=== PATIENT | female | born 1995 ===

== ENCOUNTER 2016-09-06 17:41 | Emergency (ER) | payer SELFPAY ==
--- NOTE | 2016-09-06 18:11 | RAD ---
LEFT TIBIA AND FIBULA TWO VIEWS: 09/06/16 HISTORY: Trauma to the tib/fib region. There are no signs of fracture or dislocation. IMPRESSION: Negative left tib/fib. POS: [facility]
[2016-09-06] MEDS ORDERED: HYDROcodone/Acetaminophen 5/325 mg Tablet ONE (18:16)
--- NOTE | 2016-09-06 18:36 | ERRECORD ---
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 HISTORIAN: History provided by patient. MECHANISM OF INJURY: Known mechanism. TIME COURSE: Sudden onset of symptoms. EXACERBATED BY: Patient's condition exacerbated by movement. RELIEVED BY: Patient's condition relieved by nothing. ROS (18:05 [facility]) CONSTITUTIONAL: Negative constitutional review of systems. EYES: Negative eye review of systems. ENT: Negative ears, nose, throat review of systems. CARDIOVASCULAR: Negative cardiovascular review of systems. RESPIRATORY: Negative respiratory review of systems. GI: Negative gastrointestinal review of systems. GENITOURINARY FEMALE: Negative genitourinary review of systems. MUSCULOSKELETAL: Negative musculoskeletal review of systems, pain in front of left leg under knee. SKIN: Negative skin review of systems. NEUROLOGIC: Negative neurologic review of systems. ENDOCRINE: Negative endocrine review of systems. NOTES: All systems reviewed, negative except as described above. KNOWN ALLERGIES No recorded allergies CURRENT MEDICATIONS No recorded medications VITAL SIGNS VITAL SIGNS: BP: 136/94, Pulse: 96, Resp: 20, Temp: 98.1 (Oral), O2 sat: 92 on Room Air, Time: 09/06/2016 17:47. (17:47 IHAC) Pulse: 88, Resp: 20, O2 sat: 94 on Room Air, Time: 09/06/2016 18:39. (18:39 IHAC) PHYSICAL EXAM (18:05 SHAN) CONSTITUTIONAL: Patient afebrile, Pulse normal, Blood pressure normal, Respiratory rate normal, Patient appears non toxic, Patient appears pain free, Patient alert and oriented to person, place and time. HEAD: Head exam included findings of head atraumatic, normocephalic. EYES: Eye exam normal, Eye exam included findings of eyelids normal to inspection, Pupils equally round and reactive to light, Extraocular muscles intact. ENT: ENT exam normal, Pharynx exam normal, Uvula exam normal, Tonsil exam normal. &a-1R&a+25V*p+0X*o1813P*c202B*c15G*c2P*p-0X&a-25V&a+1R Name: Sanna Meraz : 1995 F21 MedRec: [id number] AcctNum: [id number] Prepared: SunSep 06, 2016 18:45 by Interface Page 1 of 3 pMD [facility] EMERGENCY RECORD NECK: Neck exam normal, Neck exam included findings of normal range of motion, Trachea midline. RESPIRATORY CHEST: Respiratory and chest exam normal, Chest exam included findings of chest movement symmetrical, Chest expansion equal, Percussion normal. CARDIOVASCULAR: Cardiovascular assessment normal, Cardiovascular exam included findings of heart rate regular rate and rhythm, Heart sounds normal. ABDOMEN FEMALE: Abdominal exam normal, Abdominal exam included findings of abdomen nontender, Bowel sounds normal. BACK: Back exam normal. UPPER EXTREMITY: Upper extremity exam normal, Upper extremity exam included findings of inspection normal, Range of motion normal. LOWER EXTREMITY: Walked in; left pretibial area and upper 1/2 of left lower leg bruised and with mild abraisions. NEURO: Neuro exam normal. SKIN: Skin exam normal. PSYCHIATRIC: Psychiatric exam normal, Psychiatric exam included findings of patient oriented to person place and time, Normal affect, Judgment normal, Insight normal. MEDICATION ADMINISTRATION SUMMARY Drug Name: *[place], Dose Ordered: 1 tab(s), Route: Oral, Status: Given, Time: 18:16 09/06/2016, *Additional information available in notes, Detailed record available in Medication Service section. DOCTOR NOTES (18:16 SHAN) TEXT: Negative x-rays, discussed treatment and usual course and things to watch for. DATA REVIEWED: Xray data reviewed. PROBLEM LIST No recorded problems DIAGNOSIS (18:17 SHAN) FINAL: PRIMARY: left leg contusion. PRESCRIPTION (18:18 SHAN) Ultram: TABLET : 50 mg : ORAL : Quantity: 1 Unit: tab(s) Route: ORAL Schedule: every 4 hours prn Dispense: 25 Unit: tab(s) May substitute. Refills: No Refills . NOTES: No Refills. DISPOSITION PATIENT: Disposition Type: Discharge, Disposition: *Discharge Home. (18:17 SHAN) Patient left the department. (18:40 JPAR) Healy: &a-1R&a+25V*p+0X*r9554B*c202B*c15G*c2P*p-0X&a-25V&a+1R Name: Sanna Meraz : 1995 F21 MedRec: [id number] AcctNum: [id number] Prepared: SunSep 06, 2016 18:45 by Interface Page 2 of 3 pMD [facility] EMERGENCY RECORD CECILLE=DREW Alvarenga, April MARTÍNEZ=DREW Haley, Valentino GOLDEN=MD Ricardo, Dennis &a-1R&a+25V*p+0X*n3827D*c202B*c15G*c2P*p-0X&a-25V&a+1R Name: Sanna Meraz : 1995 F21 MedRec: [id number] AcctNum: [id number] Prepared: SunSep 06, 2016 18:45 by Interface Page 3 of 3 pMD MTDD
--- NOTE | 2016-09-06 18:40 | PICIS ---
[facility] EMERGENCY RECORD TRIAGE (17:49 IHAC) PATIENT: NAME: Sanna Meraz, AGE: 21, GENDER: female, : Sun1995, TIME OF GREET: SunSep 06, 2016 17:41, PREFERRED LANGUAGE: Maori, ETHNICITY: or , ECODE BILLING MAP: [facility], Zip Code: [address], KG WEIGHT: [phone], PHONE: , , , PERSON ID: [id number]. (17:49 IHAC) COMPLAINT: LEFT KNEE INJURY. (17:49 IHAC) ADMISSION: URGENCY: 4 Non Urgent, ADMISSION SOURCE: Home, TRANSPORT: CAR, BED: ER -05. (17:49 IHAC) ASSESSMENT: Assessment: PAIN TO LEFT KNEE, Symptoms began 1.5 hours ago. (17:52 IHAC) PAIN: Patient complains of pain described as, aching, on a scale 0-10 patient rates pain as 7. (17:52 IHAC) IMMUNIZATIONS: Flu vaccine not up to date. (17:52 IHAC) SIRS SCORING: Heart Rate 55-109 (0), Temp range 96.8-101.1 (0). (17:52 IHAC) LMP: Last menstrual period: 08/30/16. (17:52 IHAC) PROVIDERS: TRIAGE NURSE: Ernst Menjivar RN. (17:49 IHAC) VITAL SIGNS: BP 136/94, Pulse 96, Resp 20, Temp 98.1, (Oral), O2 Sat 92, on Room Air, Time 09/06/2016 17:47. (17:47 IHAC) KNOWN ALLERGIES No recorded allergies CURRENT MEDICATIONS No recorded medications VITAL SIGNS VITAL SIGNS: BP: 136/94, Pulse: 96, Resp: 20, Temp: 98.1 (Oral), O2 sat: 92 on Room Air, Time: 09/06/2016 17:47. (17:47 IHAC) Pulse: 88, Resp: 20, O2 sat: 94 on Room Air, Time: 09/06/2016 18:39. (18:39 IHAC) NURSING ASSESSMENT: EXTREMITY LOWER (17:56 IHAC) CONSTITUTIONAL: Complex assessment performed, Patient arrives ambulatory, Gait steady, History obtained from patient, Patient appears comfortable, Patient cooperative, Patient alert, Oriented to person, place and time, Skin warm, Skin dry, Skin normal in color, Mucous membranes pink, Mucous membranes moist, Patient is well-groomed. PAIN: aching pain, to the left knee, constant, on a scale 0-10 patient rates pain as 7, Pain exacerbated by, position change, Nothing has been tried to alleviate the pain. LEFT LOWER EXTREMITY: Left lower extremity assessment findings include capillary refill less than 2 seconds, Skin color normal, Skin temperature warm, Distal sensation intact, Muscle tone normal, no edema present, posterior tibia pulse is +4, dorsalis pedis pulse is &a-1R&a+25V*p+0X*p6694E*c202B*c15G*c2P*p-0X&a-25V&a+1R Name: Sanna Meraz : 1995 F21 MedRec: [id number] AcctNum: [id number] Prepared: SunSep 06, 2016 18:52 by Interface Page 1 of 4 pMD [facility] EMERGENCY RECORD +4. SAFETY: Side rails up, Cart/Stretcher in lowest position, Family at bedside, Call light within reach, Hospital ID band on. NURSING PROCEDURE: NURSE NOTES (18:02 [facility]) NURSES NOTES: Notes: PT. REPORTS HURTING HER KNEE AT WORK WHILE MOVING PALLETES . SHE WAS STADING ON TOP AND CO-WORKER REMOVED THE WON CAUSING HER TO FALL ON HER KNEE. ORDER DETAILS Order Name: XR Tib Fib Lt Leg 2 View, Status: Active, Time: 17:51 09/06/2016, User: CHICO, - Ordered for: MD Silva Stanley, - Entered by: MD Silva Stanley - SunSep 06, 2016 17:51, - Quantity: 1. MEDICATION ADMINISTRATION SUMMARY Drug Name: *[place], Dose Ordered: 1 tab(s), Route: Oral, Status: Given, Time: 18:16 09/06/2016, *Additional information available in notes, Detailed record available in Medication Service section. MEDICATION SERVICE (18:16 CHICO) [place]: Order: [place] (hydrocodone bitartrate/acetaminophen) - Dose: 1 tab(s) : Oral Schedule: Now Notes: one 5/325 [place] po now Ordered by: Dennis Silva MD Entered by: Dennis Silva MD SunSep 06, 2016 18:08 , Acknowledged by: Ernst Menjivar RN SunSep 06, 2016 18:15 Documented as given by: Ernst Menjivar RN SunSep 06, 2016 18:16 Patient, Medication, Dose, Route and Time verified prior to administration. Amount given: 5/325MG, Amount wasted: 0, Site: Medication administered P.O., Patient appears Awake and alert- acceptable, Correct patient, time, route, dose and medication confirmed prior to administration, Patient advised of actions and side-effects prior to administration, Allergies confirmed and medications reviewed prior to administration, Administered by ERNST MENJIVAR RN, Patient in position of comfort, Side rails up, Cart in lowest position, Family at bedside. 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 HISTORIAN: History provided by patient. MECHANISM OF INJURY: Known mechanism. TIME COURSE: Sudden &a-1R&a+25V*p+0X*o6601J*c202B*c15G*c2P*p-0X&a-25V&a+1R Name: Sanna Meraz : 1995 F21 MedRec: [id number] AcctNum: [id number] Prepared: SunSep 06, 2016 18:52 by Interface Page 2 of 4 pMD [facility] EMERGENCY RECORD onset of symptoms. EXACERBATED BY: Patient's condition exacerbated by movement. RELIEVED BY: Patient's condition relieved by nothing. ROS (18:05 SHAN) CONSTITUTIONAL: Negative constitutional review of systems. EYES: Negative eye review of systems. ENT: Negative ears, nose, throat review of systems. CARDIOVASCULAR: Negative cardiovascular review of systems. RESPIRATORY: Negative respiratory review of systems. GI: Negative gastrointestinal review of systems. GENITOURINARY FEMALE: Negative genitourinary review of systems. MUSCULOSKELETAL: Negative musculoskeletal review of systems, pain in front of left leg under knee. SKIN: Negative skin review of systems. NEUROLOGIC: Negative neurologic review of systems. ENDOCRINE: Negative endocrine review of systems. NOTES: All systems reviewed, negative except as described above. PHYSICAL EXAM (18:05 SHAN) CONSTITUTIONAL: Patient afebrile, Pulse normal, Blood pressure normal, Respiratory rate normal, Patient appears non toxic, Patient appears pain free, Patient alert and oriented to person, place and time. HEAD: Head exam included findings of head atraumatic, normocephalic. EYES: Eye exam normal, Eye exam included findings of eyelids normal to inspection, Pupils equally round and reactive to light, Extraocular muscles intact. ENT: ENT exam normal, Pharynx exam normal, Uvula exam normal, Tonsil exam normal. NECK: Neck exam normal, Neck exam included findings of normal range of motion, Trachea midline. RESPIRATORY CHEST: Respiratory and chest exam normal, Chest exam included findings of chest movement symmetrical, Chest expansion equal, Percussion normal. CARDIOVASCULAR: Cardiovascular assessment normal, Cardiovascular exam included findings of heart rate regular rate and rhythm, Heart sounds normal. ABDOMEN FEMALE: Abdominal exam normal, Abdominal exam included findings of abdomen nontender, Bowel sounds normal. BACK: Back exam normal. UPPER EXTREMITY: Upper extremity exam normal, Upper extremity exam included findings of inspection normal, Range of motion normal. LOWER EXTREMITY: Walked in; left pretibial area and upper 1/2 of left lower leg bruised and with mild abraisions. NEURO: Neuro exam normal. SKIN: Skin exam normal. PSYCHIATRIC: Psychiatric exam normal, Psychiatric exam included findings of patient oriented to person place and time, Normal affect, &a-1R&a+25V*p+0X*r4851I*c202B*c15G*c2P*p-0X&a-25V&a+1R Name: Sanna Meraz : 1995 F21 MedRec: [id number] AcctNum: [id number] Prepared: SunSep 06, 2016 18:52 by Interface Page 3 of 4 pMD [facility] EMERGENCY RECORD Judgment normal, Insight normal. EVENTS TRANSFER: Triage to Emergency Emergency Room -05. (SunSep 06, 2016 17:49 IHAC) Removed from Emergency Emergency Room -05. (18:40 JPAR) DOCTOR NOTES (18:16 SHAN) TEXT: Negative x-rays, discussed treatment and usual course and things to watch for. DATA REVIEWED: Xray data reviewed. PROBLEM LIST No recorded problems DIAGNOSIS (18:17 CHICO) FINAL: PRIMARY: left leg contusion. DISPOSITION PATIENT: Disposition Type: Discharge, Disposition: *Discharge Home. (18:17 CHICO) Patient left the department. (18:40 JPAR) INSTRUCTION (18:19 CHICO) DISCHARGE: CONTUSION, LOWER EXTREMITY. FOLLOWUP: Yunior DELA CRUZ, [place], Internal Medicine, [address] [facility] [id number], [id number]. SPECIAL: 1. pain pill sparingly 2. go home and rest today 3. return if condition worsens 4. followup with regular provider in about a week unless well 5. try ice packs for 48 hrs; and switch to warm packs after that. PRESCRIPTION (18:18 CHICO) Ultram: TABLET : 50 mg : ORAL : Quantity: 1 Unit: tab(s) Route: ORAL Schedule: every 4 hours prn Dispense: 25 Unit: tab(s) May substitute. Refills: No Refills . NOTES: No Refills. IMAGING *SUPPLY CHARGE SHEET: Image captured from scanner. (18:37 JPAR) *DISCHARGE INSTRUCTIONS RECEIPT: Image captured from scanner. (18:38 JPAR) ADMIN DIGITAL SIGNATURE: MD Ricardo, Dennis. (18:19 CHICO) DREW Menjivar Irma. (18:40 [facility]) Healy: IHLENORE=DREW Menjivar Irma JPAR=DREW Haley Jason SHAN=MD Silva Stanley &a-1R&a+25V*p+0X*t3826S*c202B*c15G*c2P*p-0X&a-25V&a+1R Name: Sanna Meraz : 1995 F21 MedRec: [id number] AcctNum: [id number] Prepared: SunSep 06, 2016 18:52 by Interface Page 4 of 4 pMD MTDD
== END 2016-09-06 18:40 | disposition home or self-care (01) ==
LOC: NAV ERS 17:41
DX: S80.12XA Contusion of left lower leg, initial encounter (principal); W19.XXXA Unspecified fall, initial encounter
CPT/HCPCS: 99283

== ENCOUNTER 2016-10-06 18:19 | Outpatient (CLI) | payer OTHER ==
[2016-10-06 18:59] LABS: BHCG - Serum NEGATIVE (NEGATIVE); Pregs Control Bar Appear? YES (CONTROL BAR)
== END 2016-10-06 18:20 | disposition home or self-care (01) ==
LOC: NAV LAB 18:19
DX: Z00.00 Encounter for general adult medical examination without abnormal findings (principal)
CPT/HCPCS: 84703